=== PATIENT | male | born 1960 | race American Indian/Alaskan Native ===

== ENCOUNTER 2018-03-27 17:38 | Emergency (ER) | payer SELFPAY ==
--- NOTE | 2018-03-29 10:13 | EDM.PDOC ---
ED HPI GENERAL MEDICAL PROBLEM - General Chief Complaint: General Stated Complaint: ABD PAIN Time Seen by Provider: 03/27/18 18:01 Source of Information: Reports: Patient History Limitations: Reports: No Limitations - History of Present Illness INITIAL COMMENTS - FREE TEXT/NARRATIVE: This is a 57yo M here for acute abdominal pain and tenderness for about 15 minutes. By the time of examination patient denies any further pain. Per nursing his pain was located in the RUQ. He has a history of an appendectomy. He denies other issues with his health. No changes in BM. He recently had some greasy wedges about 1 hour prior to his abdominal pain. The pain was constant and severe 10/10 and resolved after 15 minutes. There is a family history of cholecystitis. Onset: Sudden Duration: Minutes:, Resolved Prior to Arrival Location: Reports: Abdomen Quality: Reports: Stabbing Severity: Severe Improves with: Reports: None Worsens with: Reports: None ED ROS GENERAL - Review of Systems Review Of Systems: ROS reveals no pertinent complaints other than HPI. ED EXAM, GENERAL - Physical Exam Exam: See Below Exam Limited By: No Limitations General Appearance: Alert, WD/WN, No Apparent Distress Eye Exam: Bilateral Eye: EOMI, PERRL Ears: Normal External Exam Nose: Normal Inspection Throat/Mouth: Normal Inspection Head: Atraumatic, Normocephalic Neck: Normal Inspection Respiratory/Chest: No Respiratory Distress, Lungs Clear Cardiovascular: Normal Peripheral Pulses, Regular Rate, Rhythm GI/Abdominal: Normal Bowel Sounds, Soft, Non-Tender, No Organomegaly, No Distention, No Abnormal Bruit, No Mass Extremities: Normal Inspection Neurological: Alert, Oriented, CN II-XII Intact Departure - Departure Time of Disposition: 18:30 Disposition: Home, Self-Care 01 Condition: Good Clinical Impression: Disease of biliary tract, unspecified - Discharge Information Instructions: Cholelithiasis, Cholelithiasis, [id number], Gallbladder Eating Plan, Cholecystitis, [id number], Cholecystitis Forms: ED Department Discharge - Problem List & Annotations (1) Disease of biliary tract, unspecified SNOMED Code(s): 487495517 Code(s): K83.9 - DISEASE OF BILIARY TRACT, UNSPECIFIED Status: Acute - Problem List Review Problem List Initiated/Reviewed/Updated: Yes - Assessment/Plan Plan: Discussed likely differential due to symptoms, HPI and family history of cholecystitis. Discussed close monitoring and f/u with PCP for further Gallbladder workup and imaging. F/u in ER as needed if symptoms return or any other concerns.
== END 2018-03-27 18:23 | disposition home or self-care (01) ==
LOC: LB.ED 17:38
DX: K83.9 Disease of biliary tract, unspecified (principal); Z90.49 Acquired absence of other specified parts of digestive tract
CPT/HCPCS: 99283